=== PATIENT | female | born 1945 | race Caucasian/White ===

== ENCOUNTER 2023-07-12 10:33 | Emergency (ER) | payer OTHER, MEDICARE ==
[~2023-07-12] VITALS: Ht 160 cm; Wt 103.0 kg
[2023-07-12] MEDS ORDERED: ATORVASTATIN CA20 MG PO (11:54)
[2023-07-12] MEDS ORDERED: AMIODARONE HCL200 M1 PO (11:54)
[2023-07-12] MEDS ORDERED: ELIQUIS5 M3 PO (11:55)
[2023-07-12] MEDS ORDERED: FUROSEMIDE20 MG PO (11:55)
[2023-07-12] MEDS ORDERED: DOXAZOSIN MESYLA2 MG PO (11:55)
[2023-07-12] MEDS ORDERED: CARTIA XT120 M9 PO (11:55)
[2023-07-12] MEDS ORDERED: HYDCHL25 PO (11:55)
[2023-07-12] MEDS ORDERED: LISI20 PO (11:55)
[2023-07-12 13:00] VITALS: BP 144/74
== END 2023-07-12 14:06 | disposition home or self-care (01) ==
LOC: ER 10:33
DX: S01.112A Laceration without foreign body of left eyelid and periocular area, initial encounter (principal); W01.0XXA Fall on same level from slipping, tripping and stumbling without subsequent striking against object, initial encounter; I48.91 Unspecified atrial fibrillation; I10 Essential (primary) hypertension; Z88.5 Allergy status to narcotic agent; Z79.01 Long term (current) use of anticoagulants; Z79.899 Other long term (current) drug therapy; Z23 Encounter for immunization
CPT/HCPCS: 12001; 70450; 73562-LT; 90471; 90715; 99284-25; J2250; J3010; J7040